=== PATIENT | female | born 1970 | race Caucasian/White ===

== ENCOUNTER 2022-05-19 10:24 | Emergency (ER) | payer BC ==
[~2022-05-19] VITALS: Ht 167.6 cm; Wt 65.3 kg
--- NOTE | 2022-05-19 10:30 | NUR ---
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
--- NOTE | 2022-05-19 10:45 | NUR ---
PT SEEN BY MD AT BEDSIDE
[2022-05-19] MEDS ORDERED: IV NS 0.9% 1,000 ML BAG IV ONE (11:30)
[2022-05-19 11:36] LABS: BASOPHILS # (AUTO) 0.1 K/uL (0.0-0.2); BASOPHILS % (AUTO) 1.3 % (0.0-2.0); EOSINOPHILS % (AUTO) 1.3 % (0.0-6.0); HEMATOCRIT 41 % (33-45); HEMOGLOBIN 13.4 g/dL (11.5-14.8); LYMPHOCYTES # (AUTO) 1.7 K/uL (0.8-4.8); LYMPHOCYTES % (AUTO) 28.7 % (20.0-44.0); MEAN CORPUSCULAR HGB CONC 33 g/dl (31.0-36.0); MEAN CORPUSCULAR VOLUME 79 fL (82-100); MONOCYTES # (AUTO) 0.3 K/uL (0.1-1.30); MONOCYTES % (AUTO) 5.4 % (2.0-12.0); NEUTROPHILS # (AUTO) 3.8 K/uL (1.8-8.9); NEUTROPHILS % (AUTO) 63.3 % (43.0-81.0); PLATELET COUNT (AUTO) 220 K/uL (150-450); RED BLOOD CELL COUNT(AUTO) 5.22 MIL/uL (4.0-5.2)
[2022-05-19 11:47] LABS: CALCIUM, SERUM 9.3 mg/dL (8.5-10.1); CARBON DIOXIDE 25 mmol/L (21-32); CHLORIDE 103 mmol/L (98-107); CREATININE 0.7 mg/dL (0.6-1.3); GLUCOSE 112 mg/dL (74-106); POTASSIUM 3.7 mmol/L (3.5-5.1); SODIUM SERUM 135 mmol/L (136-145); UREA NITROGEN, BLOOD 13 mg/dL (7-18)
[2022-05-19] MEDS ORDERED: ONDANSETRON HCL/PF 4 MG/2 ML VIAL IV ONE (12:30)
[2022-05-19] MEDS ORDERED: MECLIZINE HCL 12.5 MG TABLET PO ONE (12:30)
[2022-05-19] MEDS ORDERED: ONDANSETRON HCL/PF 4 MG/2 ML VIAL ONE (12:35)
[2022-05-19] MEDS ORDERED: MECLIZINE HCL 25 MG TABLET ONE (12:36)
--- NOTE | 2022-05-19 14:06 | NUR ---
AMBULATED TO THE RESTROOM WITH STEADY GAIT
[2022-05-19] MEDS ORDERED: ONDA4TAB5 PO (14:38)
[2022-05-19] MEDS ORDERED: MECL-159 PO (14:38)
--- NOTE | 2022-05-19 14:50 | NUR ---
IV removed. Catheter intact and site benign. Pressure and 4x4 applied to site. No bleeding noted.
--- NOTE | 2022-05-19 14:53 | NUR ---
Patient discharged to home accompanied by in stable condition. Written and verbal after care instructions given. Patient verbalizes understanding of instruction.
[2022-05-19 14:54] VITALS: BP 130/71
== END 2022-05-19 14:54 | disposition home or self-care (01) ==
LOC: ER 10:30
DX: R42 Dizziness and giddiness (principal); R11.2 Nausea with vomiting, unspecified; E03.9 Hypothyroidism, unspecified
CPT/HCPCS: 99285; 96374; 71045; 96361; 93005; 85025; 80048; 36415; 84439; 84443; 84484; J8597; J2405; J7030